=== PATIENT | male | born 1930 | race Caucasian/White ===

== ENCOUNTER 2016-09-01 15:27 | Inpatient (IN) | payer MEDICARE, MEDICAID ==
[2016-09-01] MEDS ORDERED: NS 0.9% 1000 ML* 1,000 ML IV ONE ×2 (16:20→18:34)
--- NOTE | 2016-09-01 17:18 | RAD ---
INDICATION: Near syncope COMPARISON: Chest x-ray May 31, 2015 TECHNIQUE: An AP portable view obtained at 1621 hours is submitted. FINDINGS: Bones/Soft Tissues: There are no acute bony findings. Cardiomediastinal: The heart is normal in size. Lungs: There are no infiltrates. There are mild chronic interstitial changes with persistent left basilar abnormalities. There is mild hyperinflation. Pleura: There are mild chronic pleural changes. Other: None IMPRESSION: MILD CHRONIC PLEURAL AND PARENCHYMAL CHANGES. HYPERINFLATION.
[2016-09-01 17:24] LABS: Hematocrit 29 % (42-52); Hemoglobin 9.1 g/dl (14.0-18.0); Mean Corpuscular HGB Conc 31 g/dl (31-36); Mean Corpuscular Hemoglobin 27 pg (27-31); Mean Corpuscular Volume 86 fL (80-94); Red Blood Count 3.36 10^6/ul (4.0-5.4); Red Cell Distribution Width 15 % (10.5-15); White Blood Count 3.4 10^3/ul (3.5-10.8)
[2016-09-01 17:25] LABS: Add Diff/Slide Review? Slide Review Added; Comments Flag Yes
[2016-09-01 17:41] LABS: Albumin 3.1 g/dL (3.2-5.2); BUN/Creatinine Ratio 19.8 (8-20); Calcium 8.3 mg/dL (8.6-10.3); EGFR African American 23.9 (>60); EGFR Non-African American 18.6 (>60); Globulin 2.7 g/dL (2-4); Magnesium 1.7 mg/dL (1.9-2.7); Total Bilirubin 0.2 mg/dL (0.2-1.0); Total Protein 5.8 g/dL (6.4-8.9); Troponin I 0.01 ng/mL (<0.04)
[2016-09-01 17:54] LABS: Mean Platelet Volume 11 um3 (7.4-10.4)
[2016-09-01 17:57] LABS: Potassium 6.2 mmol/L (3.5-5.0)
[2016-09-01] MEDS ORDERED: Dextrose 50% Syringe 50 ML* 25 GM/50 ML SYRINGE IV PUSH PRN ×2 (18:00→18:34)
[2016-09-01] MEDS ORDERED: Albuterol 2.5 MG/3 ML NEB.SOL* (0.083%) INH ONE (18:00)
[2016-09-01] MEDS ORDERED: Insulin REGULAR(*) 1 UNITS UNIT IV PUSH ONE (18:00)
[2016-09-01] MEDS ORDERED: Calcium Gluconate INJ* 1 GM in NS 0.9% 50 ML* 50 ML IVPB ONE (18:00)
[2016-09-01] MEDS ORDERED: Sodium Polystyrene ORAL.SOL* 15 GM/60 ML BTL PO ONE (18:00)
[2016-09-01 18:04] LABS: TSH (Thyroid Stimulating Horm) 1.41 mcIU/mL (0.34-5.60)
[2016-09-01] MEDS ORDERED: Dextrose 50% Syringe 50 ML* 25 GM/50 ML SYRINGE ONE (18:18)
[2016-09-01] MEDS ORDERED: Ondansetron INJ* 2 MG/ML VIAL IV PRN (18:34)
[2016-09-01] MEDS ORDERED: Magnesium Sulfate 2 GM IV* 2 GM/50 ML BAG IVPB ONE (18:38)
[2016-09-01] MEDS ORDERED: NS 0.9% 1000 ML* 1,000 ML IV SCH (18:45)
[2016-09-01 19:39] LABS: Ferritin 268.9 ng/mL (24-336)
--- NOTE | 2016-09-01 19:41 | PN ---
Hospitalist Progress Note HOSPITALIST ADDENDUM Case reviewed and d/w Daniel Arzate MATERIALS DEVELOPMENT ENGINEER. Mr. Davenport is an 86yo M with PMH of DM, CKD, who presented to ED with c/o dizziness and near syncope. Found to be bradycardic with junctional rhythm on EKG. BP on the lower side, but mentating well. Renal function is worse with hyperkalemia. Suspect his rhythm is secondary to hyperkalemia. Will admit to ICU, treat his K and request Cardiology evaluation as he may need a pacer if his rhythm does not correct with K normalization. Agree with current management.
[2016-09-01 19:43] LABS: Folate 8.35 ng/mL (>3.99)
--- NOTE | 2016-09-01 20:23 | RAD ---
INDICATION: 86-year-old with acute renal failure COMPARISON: None TECHNIQUE: Longitudinal and transverse scans of the kidneys were obtained. FINDINGS: Kidneys: The kidneys are normal in size and echogenicity. No calculi or hydronephrosis is seen. There are left renal cysts with a lower pole 3.8 cm cyst in the midpole 2.6 cm cyst. These have been documented on earlier CT imaging There is prominent sinus fat. The right kidney measures 9.8 x 5.6 was 6.0 cm and the left kidney 9.5 x 4.8 x 5.6 cm. Other: None IMPRESSION: LEFT RENAL CYSTS. NO HYDRONEPHROSIS.
--- NOTE | 2016-09-01 20:47 | ED ---
grzegorz Sage Timothy, scribed for Vega Mendoza MD on 09/01/16 at 1544 . Syncope/Near Syncope - HPI Summary HPI Summary: Jase Davenport is a 86 yo male presenting to [facility] with hypotension. His medical facility called for an ambulance as he stated he felt like he was going to pass out. He states he feels dizzy and is seeing spots. He states he is now having trouble opening and closing his mouth. He states he is feeling much better, and denies any CP, SOB, nausea, or vomiting, but did have diarrhea 4-5 days ago which has resolved. He states he had a RASMUSSEN previously, but this has also resolved. His MHx includes DM II, - History Of Current Complaint Chief Complaint: EDDysrhythmPalp Time Seen by Provider: 09/01/16 15:30 Hx Obtained From: Patient Onset/Duration: Sudden Onset, Lasting Minutes Timing: Constant Context: Witnessed Activity At Onset: At Rest Associated Head Trauma: No Aggravating Factor(s): Nothing Alleviating Factor(s): Spontaneous Resolution Associated Signs And Symptoms: Lightheadedness - Allergies/Home Medications Allergies/Adverse Reactions: Allergies Allergy/AdvReac Type Severity Reaction Status Date / Time Penicillins [PCN] Allergy Unknown Unknown Verified 12/25/15 13:04 Reaction Details Home Medications: Home Medications Aspirin [Aspirin 81 MG TAB] 81 mg PO DAILY 09/01/16 [History Confirmed 09/01/16] Carbamide Peroxide 6.5% OTIC* [DEBROX 6.5% Otic*] 5 flori BOTH EARS DAILY [History Confirmed 09/01/16] Cholecalciferol [D3 High Potency] 2,000 mg PO DAILY 09/01/16 [History Confirmed 09/01/16] Clopidogrel Bisulfate [Plavix] 75 mg PO 09/01/16 [History] Collagenase 250 MG/GM OINT* [Santyl 250 mg/gm Oint*] 1 applic .SEE ORDER SEE INSTRUCTIONS 09/01/16 [History Confirmed 09/01/16] Fluocinonide 0.05% CM (NF) [Lidex 0.05% CREAM (NF)] 0.05 % TOPICAL DAILY [History Confirmed 09/01/16] Fluticasone Propionate (Nasal) [Allergy Nasal [place] 24 Ho] 50 mcg NA BID [History Confirmed 09/01/16] Fluvastatin Sodium [Lescol] 20 mg PO BEDTIME 09/01/16 [History Confirmed ] Gabapentin (Once-Daily) [Gralise] 300 mg PO BID 09/01/16 [History Confirmed 01/11] Lisinopril [Lisinopril 40 MG-] 40 mg PO DAILY 09/01/16 [History Confirmed ] Loratadine 10 mg PO DAILY 09/01/16 [History Confirmed 09/01/16] Metformin ER (NF) 500 mg PO BID 09/01/16 [History Confirmed 09/01/16] Terazosin HCl 2 mg PO BEDTIME 09/01/16 [History Confirmed 09/01/16] Terbinafine HCl (Topical) [Antifungal Foot] 1 % EX DAILY 09/01/16 [History Confirmed 09/01/16] Tramadol HCl [Ultram] 50 mg PO 09/01/16 [History] Zolpidem Tartrate [Ambien] 10 mg PO 09/01/16 [History] PMH/Surg Hx/FS Hx/Imm Hx Endocrine/Hematology History: Reports: Hx Diabetes - Type II - Family History Known Family History: Positive: Cardiac Disease, Hypertension - Social History Alcohol Use: None Substance Use Type: Reports: None Substance Use Comment - Amount & Last Used: unknown Smoking Status (MU): Former Smoker Review of Systems Constitutional: Negative Positive: Other - "seeing spots" ENT: Negative Cardiovascular: Negative Negative: Chest Pain Respiratory: Negative Negative: Shortness Of Breath Positive: Diarrhea - resolved. Negative: Abdominal Pain, Vomiting, Nausea Genitourinary: Negative Musculoskeletal: Negative Skin: Negative Neurological: Other - lightheadedness, trouble opening and closing his mouth Positive: Headache Psychological: Normal All Other Systems Reviewed And Are Negative: Yes Physical Exam - Summary Physical Exam Summary: Vital signs: reviewed General: Patient is comfortable lying in stretcher with no signs of distress HEENT: within normal limits Lungs: CTA B/L CVS: Bradycardia, IRR, S1 & S2 present. No murmurs appreciated. ABDOMEN: Soft, non-tender. No signs of distention. No rebound no guarding, and no masses palpated. Bowel sounds are normal. EXTREMITIES: FROM in all major joints, no edema, no cyanosis or clubbing. NEURO: Alert and oriented x 3. No acute neurological deficits. Speech is normal and follows commands. SKIN: Dry and warm Triage Information Reviewed: Yes Vital Signs On Initial Exam: Initial Vitals BP 82/44 09/01/16 15:39 Vital Signs Reviewed: Yes Diagnostics - Vital Signs Vital Signs Temp Pulse Resp BP Pulse Ox 09/01/16 16:30 38 14 82/42 100 09/01/16 16:14 39 09/01/16 16:09 41 13 90/39 100 09/01/16 16:05 97.7 F 46 18 88/39 100 09/01/16 16:00 42 15 88/39 100 09/01/16 15:53 43 15 81/34 99 09/01/16 15:51 40 12 76/36 100 09/01/16 15:40 41 100 09/01/16 15:39 82/44 - Laboratory Lab Results: Lab Results 09/01/16 Range/Units 17:12 WBC 3.4 L (3.5-10.8) 10^3/ul RBC 3.36 L (4.0-5.4) 10^6/ul Hgb 9.1 L (14.0-18.0) g/dl Hct 29 L (42-52) % MCV 86 (80-94) fL MCH 27 (27-31) pg MCHC 31 (31-36) g/dl RDW 15 (10.5-15) % Plt Count Pending MPV Pending Neut % (Auto) 65.9 (38-83) % Lymph % (Auto) 25.8 (25-47) % [place] % (Auto) 7.2 (1-9) % Eos % (Auto) 0.6 (0-6) % Baso % (Auto) 0.5 (0-2) % Absolute Neuts (auto) 2.2 (1.5-7.7) 10^3/ul Absolute Lymphs (auto) 0.9 L (1.0-4.8) 10^3/ul Absolute Monos (auto) 0.2 (0-0.8) 10^3/ul Absolute Eos (auto) 0 (0-0.6) 10^3/ul Absolute Basos (auto) 0 (0-0.2) 10^3/ul Absolute Nucleated RBC 0 10^3/ul Nucleated RBC % 0 Result Diagrams: 09/01/16 17:12 09/01/16 17:12 Lab Statement: Any lab studies that have been ordered have been reviewed, and results considered in the medical decision making process. - Radiology CXR Xray Interpretation: Positive (See Comments) - IMPRESSION: MILD CHRONIC PLEURAL AND PARENCHYMAL CHANGES. HYPERINFLATION. Radiology Interpretation Completed By: Radiologist - EKG 1530 Cardiac Rate: Bradycardia - 42 BPM EKG Interpretation: Atrial fibrillation @ 42 BPM, no ST elevations Course/Dx Assessment/Plan: Jase Davenport is an 86 yo male presenting to [facility] with hypotension and lightheadedness, stating he was seeing spots and felt like he was going to pass out. Bloodwork shows that Pt has normocytic, normochromic anemia, he has light hyponatremia at 128, potassium of 6.2, and acute on chronic renal failure, requiring observation with his bmp at 928. In the ED course of Tx the BP of pt was 80/40, I decided to give him one dose of IV fluids, right now his BP is 96/50. Since the Pt is hyperkalemic, Pt was given calcium glutamate, insulin, dextrose, kayexalate, and albuterol. At this point i discussed my findings with Dr. Tsai who accepted the Pt for admission. The Pt is still critical, but more stable. - Diagnoses Differential Diagnosis/HQI/PQRI: Positive: Coronary Artery Disease, Dysrhythmia , Other - Bradycardia, Provider Diagnoses: Hyperkalemia, Symptomatic bradycardia, Acute renal failure, Near syncope - Physician Notifications Discussed Care Of Patient With: 1810 - Eulalio (hospitalist) - discussed Pt condition, agrees to admit Pt. 1825 - Dr. Simmons (cardiology) - Discussed Pt condition, agrees to evaluate Pt. Instructed by Provider To: Admit As Inpatient - Critical Care Time Critical Care Time: 30-74 min Discharge - Discharge Plan Condition: Stable Disposition: ADMITTED TO [facility] Disposition Comment: admitted for evaluation and Tx of his diagnoses The documentation as recorded by the grzegorz silverman Timothy accurately reflects the service I personally performed and the decisions made by me, Vega Mendoza MD.
[2016-09-01] MEDS ORDERED: FLUVASTATIN 20 MG PO SCH (21:00)
[2016-09-01] MEDS ORDERED: Heparin VIAL(*) 5000 UNITS/ML VIAL (FIVE THOUSAND) SUBCUT SCH (22:00)
[2016-09-01 22:05] LABS: BUN/Creatinine Ratio 21.8 (8-20); Calcium 7.9 mg/dL (8.6-10.3); EGFR African American 29.8 (>60); EGFR Non-African American 23.2 (>60)
[2016-09-01 22:07] LABS: Troponin I 0.01 ng/mL (<0.04)
[2016-09-01] MEDS: GABAPENTIN 300 MG PO SCH (22:32)
[2016-09-01 23:37] LABS: BUN/Creatinine Ratio 22.3 (8-20); EGFR African American 26.9 (>60); EGFR Non-African American 20.9 (>60); Potassium 5.1 mmol/L (3.5-5.0)
--- NOTE | 2016-09-02 00:01 | HP ---
HISTORY AND PHYSICAL: DATE OF ADMISSION: 09/01/16 PRIMARY CARE PROVIDER: SELVIN Lopez ATTENDING PHYSICIAN WHILE IN THE HOSPITAL: Dr. Lizzette Garcia* (report dictated by Daniel Arzate NP). CHIEF COMPLAINT: Dizziness. HISTORY OF PRESENT ILLNESS: Mr. Davenport is an 86-year-old male patient with a history of hypertension, gout, diabetes, neuropathy, peripheral vascular disease and a history of melanoma. He comes in to the ER today stating that around noontime after eating lunch, he was feeling dizzy. He explained this to , I believe, his aide; he says it is his business planning analyst Violeta and she was concerned and called 911. He gives a history that he has been feeling dizzy off and on over the last week to two weeks. In addition to this, he has had a couple of falls over the last couple of weeks. He says he has not fainted or passed out. He says at times, sometimes he has felt like he has almost passed out, but he sits down and he feels okay. He denied having any chest pain or shortness of breath today, but he did state that he definitely felt dizzy. He felt like he was, in his words, wobbling. He denied having any recent change in medications. No fevers. He says his stools have been loose, but he denies having multiple loose bowel movements. He says recently he was on an antibiotic in the form of doxycycline for a toe infection. The patient says he has not been eating and drinking like he should. He came into the ER today. It was ultimately noted that he was bradycardic. He was in acute renal failure and he was hyperkalemic and the hospitalist service was asked to evaluate for admission. PAST MEDICAL HISTORY: Significant for: 1. Hypertension. 2. Gout. 3. Diabetes. 4. Neuropathy. 5. Peripheral vascular disease. 6. Melanoma. PAST SURGICAL HISTORY: 1. He has had tonsillectomy. 2. Hernia repair, double. HOME MEDICATIONS: Include: 1. Debrox 5 drops both ears daily. 2. Aspirin 81 mg daily. 3. Vitamin D 2000 units daily. 4. Collagenase one application as prescribed. 5. 0.5% topically daily. 6. Lescol 20 mg daily. 7. Fluticasone 50 mcg each nare b.i.d. 8. Clarinex 10 mg daily. 9. Gabapentin 300 mg p.o. b.i.d. 10. Hytrin 2 mg at bedtime. 11. Metformin 500 mg p.o. b.i.d. 12. Terbinafine 1% topically daily. 13. Lisinopril 40 mg daily. 14. Ambien 10 mg daily. 15. Tramadol 50 mg every 6 hours as needed. 16. Plavix 75 mg daily. ALLERGIES TO MEDICATION: Include PENICILLIN. FAMILY HISTORY: His mother is diabetic and has heart disease. Father history reviewed, noncontributory. SOCIAL HISTORY: He is a former smoker. He does not drink alcohol. He does not appoint a surrogate decision maker. REVIEW OF SYSTEMS: There is no documented fever. He denied any significant weight change. There was no double vision. He denies having any ear discharge. There is no rhinorrhea. No sore throat. No thyroid enlargement. Denies having any chest pain. There is no orthopnea. No nocturnal dyspnea. There is no abdominal pain. There is no nausea, no vomiting, no dysuria. No frequency. No seizure. No loss of consciousness. No pruritus and no skin ulcerations. Review of 14 systems completed, all others negative. PHYSICAL EXAMINATION GENERAL: At this time, Mr. Davenport is an 86-year-old male patient. He is sitting in the ER stretcher. He does not appear to be in any acute distress. VITAL SIGNS: Blood pressure 109/49 with a pulse of 44, respirations 14, O2 sat of 100%, temperature of 97.7. HEENT: Head is atraumatic and normocephalic. Eyes: EOMs are intact. Sclerae anicteric and not pale. Throat: Oral mucosa appears to be dry. No oropharyngeal erythema. NECK: Supple. LUNGS: Clear to auscultation. No wheezes, rales, or rhonchi. HEART: Sounds S1, S2. Regular rate and rhythm. No murmurs, rubs, or gallops. ABDOMEN: Soft, flat, and nontender. Bowel sounds present. EXTREMITIES: Pulses 2+ throughout. Able to move all 4 extremities with 5/5 strength. NEUROLOGIC: The patient is awake, he is alert, he is oriented x3. Tongue is midline. Hazardous Waste Material Technician are equal. No gross focal deficits. SKIN: Grossly intact. LABORATORY DATA AND DIAGNOSTIC STUDIES: Labs today revealed WBC of 3.4, RBC of 3.36, hemoglobin of 9.1, platelet count of 80. His sodium was 128, potassium was 6.2, chloride of 108, bicarb 17, BUN 63, creatinine of 3.18, glucose 110, lactic 1.2, calcium 8.3, mag 1.7. Total bili 0.2, AST 20, ALT 13, alk phos 80. Troponin 0.01. BNP 928. TSH 1.41. He had a chest x-ray obtained today, which showed mild chronic pleural and parenchymal changes, hyperinflation. EKG shows what to me appears to be a junctional rhythm, rate of 39, no ST elevations, no T-wave inversions. He has a previous one from 2 years ago, which showed a normal sinus rhythm with rate of 59. Old medical records were reviewed. ASSESSMENT AND PLAN: Mr. Davenport is an 86-year-old male patient coming into the ER today with complaints of dizziness. He presented to the ER today and found to be profoundly bradycardic. He will be admitted under inpatient status for: 1. Bradycardia. At this point with junctional bradycardia, I am going to go ahead and fix that potassium. I am going to give him Kayexalate, calcium gluconate, insulin D50 already ordered in the ER. In addition to this, we will hydrate the patient. Repeat his labs at 2100. I am going to give him 2 of mag. I would like to have pacer pads on the patient at all times. I did touch base with Dr. Simmons who will evaluate the patient today. He is pretty asymptomatic right now. His pressures are right in the 90s, but he is not dizzy. He does not feel like he is going to faint. He does not feel lightheaded. We will continue to follow. If he becomes symptomatic, obviously I would give him a dose of atropine and start pacing him externally and then try for a transvenous pacing and we will continue to follow but I think the etiology could be from the potassium which we have treated. 2. Acute renal failure. Last creatinine was 2. I am going to get a bladder scan, which showed he had 300 cc of urine in the bladder. At this point, we will go ahead and check a renal ultrasound. We will also get a FENa on the patient. We will hydrate him and we will hold any nephrotoxic agents. 3. Hypertension. Holding meds for the time being. We will monitor. 4. Gout. Not an active issue. 5. Diabetes. He will be on lispro sliding scale. 6. Neuropathy. Continue gabapentin. 7. Peripheral vascular disease. Holding the aspirin and the Plavix in the setting that the patient may need a pacemaker. 8. Melanoma. Follow with primary. 9. DVT prophylaxis. I have ordered SCDs. 10. Code status. Full code. 11. Fluids, electrolytes, nutrition. He is NPO for the time being. TIME SPENT: Time spent on the admission was approximately 70 minutes; greater than half the time was spent [id number] with the patient obtaining my history and physical, other half the time spent going over the plan of care with the patient and implementing my plan of care. I did discuss the plan of care with my attending, Dr. Garcia; she is in agreement. DANIEL ARZATE NP CC: Cinda aSnford, SELVIN* [id number]/CPS #: [id number] [id number]
[2016-09-02 00:30] LABS: Troponin I 0.02 ng/mL (<0.04)
[2016-09-02 02:56] LABS: Urine Bilirubin Negative (Negative); Urine Glucose Negative (Negative); Urine Nitrite Negative (Negative)
[2016-09-02 06:06] LABS: Hematocrit 27 % (42-52); Hemoglobin 8.8 g/dl (14.0-18.0); Mean Corpuscular HGB Conc 32 g/dl (31-36); Mean Corpuscular Hemoglobin 28 pg (27-31); Mean Corpuscular Volume 86 fL (80-94); Mean Platelet Volume 11 um3 (7.4-10.4); Red Blood Count 3.16 10^6/ul (4.0-5.4); Red Cell Distribution Width 15 % (10.5-15); White Blood Count 3.8 10^3/ul (3.5-10.8)
[2016-09-02 06:22] LABS: BUN/Creatinine Ratio 23.6 (8-20); Calcium 8.6 mg/dL (8.6-10.3); EGFR African American 32.7 (>60); EGFR Non-African American 25.4 (>60)
[2016-09-02 06:23] LABS: Potassium 5.1 mmol/L (3.5-5.0)
--- NOTE | 2016-09-02 06:23 | PN ---
Progress Note - Progress Note Note: Paged for urinary retention - bladder scan >1L - straight cath x1. Paged again for repeat bladder scan later on that showed >1L, mills ordered.
[2016-09-02] MEDS: Acetaminophen TAB* 325 MG PO PRN ×2 (08:04→23:54)
[2016-09-02] MEDS: Insulin LISPRO* 1 UNITS UNIT SUBCUT SCH ×3 (08:10→16:52)
[2016-09-02] MEDS ORDERED: Sodium Polystyrene ORAL.SOL* 15 GM/60 ML BTL PO ONE (08:26)
--- NOTE | 2016-09-02 10:04 | PN ---
Subjective Date of Service: 09/02/16 Interval History: HOSPITALIST PROGRESS NOTE Patient seen and examined at bedside. He feels better today. Denies dizziness or lightheadedness. Major complaint is left ankle pain similar to his prior episodes of gout. Family History: Unchanged from Admission Social History: Unchanged from Admission Past Medical History: Unchanged from Admission Objective Active Medications: Acetaminophen (Tylenol Tab*) 650 mg PO Q4H PRN PRN Reason: FEVER/PAIN Last Admin: 09/02/16 08:04 Dose: 650 mg Colchicine (Colcrys*) 0.6 mg PO DAILY [facility] Dextrose (D50w Syringe 50 Ml*) 12.5 gm IV PUSH .FOR FS < 60 - SS PRN PRN Reason: FS < 60 Gabapentin (Neurontin Cap(*)) 300 mg PO BID [facility] Sodium Chloride (Ns 0.9% 1000 Ml*) 1,000 mls @ 100 mls/hr IV PER RATE [facility] Insulin Human Lispro (Humalog*) 0 units SUBCUT AC JAYME PRN Reason: Protocol Last Admin: 09/02/16 08:10 Dose: Not Given Ondansetron HCl (Zofran Inj*) 4 mg IV Q6H PRN PRN Reason: NAUSEA Prednisone (Deltasone Tab*) 10 mg PO DAILY JAYME Tamsulosin HCl (Flomax Cap*) 0.4 mg PO BEDTIME [facility] Vital Signs 09/02/16 09/02/16 09/02/16 08:00 08:13 09:00 Temperature 96.4 F 98.3 F Pulse Rate 54 56 Respiratory 15 13 Rate Blood Pressure 131/58 137/58 (mmHg) O2 Sat by Pulse 100 99 Oximetry Oxygen Devices in Use Now: Nasal Cannula Appearance: Pleasant elderly male lying in bed in NAD. Eyes: No Scleral Icterus Ears/Nose/Mouth/Throat: Mucous Membranes Moist Neck: Trachea Midline Respiratory: Symmetrical Chest Expansion and Respiratory Effort, Clear to Auscultation Cardiovascular: RRR - Normal S1 and S2 Abdominal: NL Sounds; No Tenderness; No Distention Extremities: No Edema, - - Pain on palpation of left ankle, with mild warmth, no erythema Neurological: Alert and Oriented x 3, NL Muscle Strength and Tone Lines/Tubes/Other Access: Clean, Dry and Intact Peripheral IV Nutrition: Taking PO's Result Diagrams: 09/02/16 05:50 09/02/16 05:50 Assess/Plan/Problems-Billing Assessment: Mr. Davenport is an 86yo M with PMH of HTN, gout, type 2 DM, diabetic neuropathy, PVD , melanoma, who presented to ED with c/o dizziness and falls, found to be in junctional rhythm, renal failure, and hyperkalemic. - Patient Problems (1) Symptomatic bradycardia Comment: - Patient was in junctional rhythm in the ED and now is in sinus radha. - Likely secondary to hyperkalemia. - Cardiology input appreciated - no plan for pacer placement at this point. - Will transfer to Telemetry. (2) Hyperkalemia Comment: - Due to acute on chronic renal failure. - Continue Kayexalate and monitor. (3) Renal failure Comment: - Suspect post-renal in the setting of BPH. - Patient describes urinary hesitation for many years, but has never seen Urology. - Now with urinary retention - replace Tatum, monitor urine output and renal function. - Continue IVF. (4) BPH (benign prostatic hyperplasia) Comment: - With urinary retention. - Continue Tatum and start Flomax at bedtime. (5) Gout attack Comment: - Suspect mild left ankle arthritis secondary to gouty attack. - Will give low dose prednisone and Colchicine. - Check uric acid and inflammatory markers. (6) HTN (hypertension) Comment: - Was on lisinopril as outpatient, what probably contributed to his ARNULFO and hyperkalemia - d/c for now. - Start amlodipine for BP control. (7) Type 2 diabetes mellitus Comment: - Metformin on hold due to ARNULFO. - Continue Lispro SS. (8) Diabetic neuropathy Comment: - Continue Gabapentin. (9) PVD (peripheral vascular disease) Comment: - No plans for pacer placement at this time - will resume Aspirin. Keep Plavix on hold for now as we continue to monitor. (10) Anemia Comment: - Suspect component of anemia of renal disease. - Check w/u. (11) DVT prophylaxis Comment: - SQ heparin. (12) Full code status Status and Disposition: Inpatient.
[2016-09-02 11:11] LABS: C Reactive Protein 1.56 mg/L (< 5.00)
--- NOTE | 2016-09-02 11:13 | ECHO ---
Patient: JAELYN MCINTYRE [facility] Rec#: [id number] : 1930 Date: 09/02/2016 Age: 86y Height: 185.42 cm / 73.0 in Weight: 73.48 kg / 161.9 lbs Sex: M BSA: 1.97 Room#: [facility] Admit Date#: 09/01/2016 Type: Inpatient Referring: Daniel Arzate NP Reading: Carla Simmons MD Financial Services Technician: Michelle Prakash RDCS CC: Cinda Sanford Transthoracic Echocardiogram Indication: Bradycardia BP: 131/65 HR: 59 Rhythm: Bradycardia Findings History: Hyperkalemia,HTN,DM,melanoma,neuropathy,gout, former smoker. Technical Comments: The study is technically limited due to the patient's smoking history. Completed at 0910. Left Ventricle: The left ventricular chamber size is decreased. Mild to moderate concentric left ventricular hypertrophy is observed. Global left ventricular wall motion and contractility are within normal limits. There is normal left ventricular systolic function. The estimated ejection fraction is 50-55%. There is no consistent Doppler evidence of clinically significant diastolic dysfunction. Left Atrium: The left atrium is mildly dilated. Right Ventricle: Moderator Band present. The right ventricle is mildly dilated. The right ventricular global systolic function is normal. Right Atrium: The right atrium is mildly dilated. Aortic Valve: The aortic valve structure is not well visualized. The aortic valve leaflets are mildly thickened. There is no evidence of aortic regurgitation. There is no evidence of aortic stenosis. Mitral Valve: The mitral valve leaflets are mildly thickened. There is a trace of mitral regurgitation. There is no evidence of mitral stenosis. Tricuspid Valve: The tricuspid valve leaflets are normal. There is moderate tricuspid regurgitation. There is evidence of mild pulmonary hypertension. There is no tricuspid stenosis. Pulmonic Valve: The pulmonic valve structure is not well visualized. Pericardium: The pericardium appears normal. Aorta: There is mild dilatation of the ascending aorta. There is no dilatation of the aortic arch. There is mild dilatation of the aortic root. Pulmonary Artery: The main pulmonary artery is not well visualized. Venous: The inferior vena cava appears normal in size. There is an approximate 50% respiratory change in the inferior vena cava dimension. Conclusions The study of fair quality, body habitus affects image quality. Mild to moderate concentric left ventricular hypertrophy is observed. The left ventricular chamber size is decreased, normal wall motion and contractility. The estimated ejection fraction is 50-55%. The right ventricle is mildly dilated and systolic function is normal. The aortic valve leaflets are mildly thickened with normal function. There is moderate tricuspid regurgitation. There is evidence of mild pulmonary hypertension: 43 mmHg. There is mild dilatation of the ascending aorta: 3.6 cm. No prior echo available to compare. Measurements Name Value Normal Range RVIDd (AP) 2D 2.7 cm (0.9 - 2.6) RVDdMajor (2D) 4.3 cm (2.2 - 4.4) RAd ISD 4CH 6.2 cm (3.4 - 4.9) RA (A4C)W 4.5 cm (2.9 - 4.6) IVSd (2D) 1.4 cm (0.6 - 1) LVPWd (2D) 1.4 cm (0.6 - 1) LVIDd (2D) 3.3 cm (3.6 - 5.4) LVIDs (2D) 1.6 cm - LV FS (2D) 51 % (25 - 45) Aortic Annulus 2 cm (1.4 - 2.6) Ao root diameter (2D) 3.7 cm (2.1 - 3.5) Ascending Ao 3.6 cm (2.1 - 3.4) Aortic arch 3 cm (1.8 - 3.4) Descending Ao 0.6 cm - LA dimension (AP) 2D 3.5 cm (2.3 - 3.8) LAd ISD 4CH 6.5 cm (2.9 - 5.3) LA ISD 4CH W 4.3 cm (2.5 - 4.5) Name Value Normal Range LA ESV SP 4CH (A/L) 63 ml - LA ESV SP 2CH (A/L) 30 ml - LA ESV BP (A/L) 48 ml - LA ESV BP (A/L) index 21.9 ml/m2 - LA ESV SP 4CH (MOD) 60 ml - LA ESV SP 2CH (MOD) 27 ml - Name Value Normal Range MV E-wave Vmax 1 m/sec - MV deceleration time 219 msec - MV A-wave Vmax 0.5 m/sec - MV E:A ratio 2.1 ratio - LV septal e' Vmax 0.09 m/sec - LV lateral e' Vmax 0.11 m/sec - LV E:e' septal ratio 11.11 ratio - LV E:e' lateral ratio 9.09 ratio - Name Value Normal Range AV Vmax 1.4 m/sec - AV VTI 33.5 cm - AV peak gradient 7.85 mmHg - AV mean gradient 4.06 mmHg - LVOT Vmax 1 m/sec - LVOT VTI 24.3 cm - LVOT peak gradient 3.91 mmHg - LVOT mean gradient 1.99 mmHg - Name Value Normal Range TR Vmax 3 m/sec - TR peak gradient 35 mmHg - RAP 8 mmHg - RVSP 43 mmHg - IVC diameter 1.9 cm -
[2016-09-02] MEDS: NS 0.9% 1000 ML* 1,000 ML IV SCH ×2 (13:17→23:59)
[2016-09-02] MEDS: predniSONE TAB* 10 MG PO SCH (13:18)
[2016-09-02] MEDS: Colchicine* 0.6 MG TAB PO SCH (13:18)
[2016-09-02] MEDS: Gabapentin CAP(*) 300 MG PO SCH ×2 (13:18→22:02)
[2016-09-02] MEDS: amLODIPine TAB* 5 MG PO SCH (16:17)
[2016-09-02] MEDS: GABAPENTIN 300 MG PO SCH (17:35)
--- NOTE | 2016-09-02 20:19 | CONS ---
CARDIOLOGY CONSULTATION: DATE OF CONSULT: 09/01/16 REASON FOR CONSULT: Bradycardia. CHIEF COMPLAINT: The patient's chief complaint is dizziness and generally not feeling well. HISTORY OF PRESENT ILLNESS: Mr. Davenport is an 86-year-old gentleman followed in the [facility] and followed by Dr. Mejia in [facility] for peripheral vascular disease. He has longstanding diabetes and hypertension among other diseases. The patient states that for a couple of weeks, he just has not felt well. He has had some intermittent dizziness, but denies any actual syncopal or near syncopal episodes. He denies chest pain, pressure, heaviness, orthopnea, or PND. He does not perceive he has had any recent fevers, chills, or sweats. He did tell me that his left little toe has been treated with antibiotics recently and he follows up with Dr. Reyez in the wound clinic for this. In the emergency room, the patient was found to be bradycardic with junctional rhythm and labs revealed marked hyperkalemia and significant renal insufficiency. PAST MEDICAL HISTORY: The patient has a past medical history of peripheral vascular disease, diabetes, hypertension, melanoma, gout, dyslipidemia. PAST SURGICAL HISTORY: Includes tonsillectomy in childhood, right inguinal hernia repair, circumcision, left inguinal hernia repair. MEDICATIONS: Inpatient medications include: 1. Tylenol p.r.n. 2. Colchicine 0.6 mg a day. 3. Neurontin 300 mg b.i.d. 4. Insulin coverage. 5. Zofran p.r.n. 6. Prednisone 10 mg a day. 7. Normal saline at 100 cc an hour. 8. Flomax 0.4 mg a day. Outpatient medications include: 1. Recent doxycycline. 2. Debrox. 3. Aspirin 81 mg a day. 4. Vitamin D. 5. Collagenase topical. 6. Lescol 20 mg a day. 7. Fluticasone 50 mcg both sides b.i.d. 8. Clarinex 10 mg a day. 9. Neurontin 300 mg b.i.d. 10. Hytrin 2 mg q.h.s. 11. Metformin 500 mg b.i.d. 12. Terbinafine topical. 13. Lisinopril 40 mg a day. 14. Ambien 10 mg a day. 15. Tramadol 50 mg a day. 16. Plavix 75 mg a day. ALLERGIES: Include PENICILLIN. FAMILY HISTORY: Significant that his mother had a history of diabetes, hypertension, and heart disease. 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 No history of alcohol use or abuse identified. REVIEW OF SYSTEMS: See history of present illness. Denies recent fevers, chills, sweats. Denied change in appetite, bowel, or bladder habits. Denied hematuria or dysuria. All other review of systems was negative. Please note the patient's historical abilities are only fair, it is hard for him to stay on task. PHYSICAL EXAM: The patient is 6 feet 1 inch, weighs 171 pounds with a BMI of 23. Vital Signs: On admission to the ER, blood pressure 82/44, 76/36, junctional rhythm in the 40s, currently blood pressure 131/58, sinus rhythm in the 50s; afebrile; respiratory rate 15; oxygen saturation 100%. General Appearance: Tall, lean elderly gentleman, seated, does not appear in acute distress, although he is quite elderly very chatty and loquacious. Psychologically, pleasant and cooperative. Neurologically, awake, alert, and oriented to person and place. I did not evaluate for time. Skin was warm and dry without appreciable cyanosis. HEENT: Pupils are equal and round. Mucous membranes moderately dry. Neck: Without appreciable increase in JVP. Carotid pulses palpable, did not hear bruits, but it is hard to stop him from talking and breathing. Breath sounds had few crackles in the bases, but overall good air movement and no wheezing or rhonchi. Coronary: Distant S1 and S2, regular. No murmurs heard. Abdomen: Nondistended. Active bowel sounds and soft. Lower Extremities: Distal pulses not felt and they are lukewarm. The little toe was examined. No evidence of increased heat or erythema. There is some venous discoloration consistent with chronic venous stasis. DIAGNOSTIC STUDIES/LAB DATA: Labs on admission, sodium 128, potassium 6.2, chloride 108, bicarb 17, BUN 63, creatinine 3.18 (creatinine 07/23/ 2.02 and 02/11/16 1.78). Glucose 110, magnesium 1.7, ALT 13. Troponin #1 0.01, #2 0.01, #3 0.02. TSH 1.41. Current electrolytes today, sodium 134, potassium 5.1 , chloride 111, bicarb 18, BUN 57, creatinine 2.42, calcium 8.6. White count 3.8, hemoglobin 8.8, hematocrit 27 (baseline hematocrit 02/11/16 is 34). INR 0.94. Urinalysis: Specific gravity 1.008, esterase negative, nitrite negative, glucose negative, ketones negative. EKG on admission shows a junctional bradycardia, 39 beats a minute, QRS axis +30 , normal intraventricular conduction times, corrected QT interval [address] segments unremarkable. A 12-lead ECG this morning shows normal sinus rhythm with first-degree AV block 53 beats a minute, QRS axis of 0. Normal intraventricular conduction times and normal STs. Rhythm strips overnight showed initially marked sinus bradycardia prior to resuming normal sinus rhythm at normal rates. Renal ultrasound negative for hydronephrosis, overnight bladder scan consistent with retention and subsequent Tatum placement noted. Chest x-ray showed mild chronic pleural and parenchymal changes and hyperinflation. SUMMARY: Mr. Jase Davenport is an 86-year-old gentleman with dizziness, who presented in a junctional bradycardia in the setting of marked hyperkalemia and acute on top of chronic renal insufficiency. In the emergency room, when I saw him initially September 01, he was hemodynamically stable despite the bradycardia and the sinus rhythm was starting to come back and therefore observation was recommended. Overnight, he has done well with improvement in his hyperkalemia, normal sinus rhythm has been restored. I do not recommend pacemaker implantation at this point as the bradyarrhythmia appears secondary to his renal insufficiency and secondary hyperkalemia and this appears to be correctable. I agree with stopping his lisinopril and measures taken to reverse the hyperkalemia, Kayexalate or D50. Although the patient has atherosclerotic risks with his negative troponins and no evidence of ischemia on his EKG, I do not feel he needs an ischemic workup at this point in time. The patient's peripheral vascular disease is noted and in our system, I do not appreciate that we have lipids checked. I would obtain prior lipids and/or update lipids. Consideration for evaluation for renal artery stenosis as part of his presentation (as opposed to BPH and urinary retention alone) could be considered if this has not been done in the relatively recent past. We will follow Mr. Davenport distantly for his dysrhythmias. Thank you for allowing me to assist in this nice gentleman's care. CC: [facility] [place]; Hospitalist Service* [id number]/[facility] #: [id number] SHWETA
[2016-09-02] MEDS ORDERED: Tamsulosin CAP* 0.4 MG PO SCH (21:00)
[2016-09-02] MEDS: Heparin VIAL(*) 5000 UNITS/ML VIAL (FIVE THOUSAND) SUBCUT SCH (22:04)
[2016-09-03] MEDS: Heparin VIAL(*) 5000 UNITS/ML VIAL (FIVE THOUSAND) SUBCUT SCH (05:34)
[2016-09-03 06:28] LABS: Hematocrit 27 % (42-52); Hemoglobin 8.7 g/dl (14.0-18.0); Mean Corpuscular HGB Conc 33 g/dl (31-36); Mean Corpuscular Hemoglobin 28 pg (27-31); Mean Corpuscular Volume 86 fL (80-94); Mean Platelet Volume 10 um3 (7.4-10.4); Red Blood Count 3.13 10^6/ul (4.0-5.4); Red Cell Distribution Width 15 % (10.5-15); White Blood Count 3.5 10^3/ul (3.5-10.8)
[2016-09-03 06:38] LABS: Comments Flag Yes
[2016-09-03 06:41] LABS: Urine Bacteria Absent (Absent); Urine Bilirubin Negative (Negative); Urine Glucose Negative (Negative); Urine Nitrite Negative (Negative)
[2016-09-03 06:43] LABS: BUN/Creatinine Ratio 21.7 (8-20); Calcium 8.6 mg/dL (8.6-10.3); EGFR African American 52.3 (>60); EGFR Non-African American 40.7 (>60); Potassium 4.6 mmol/L (3.5-5.0)
[2016-09-03 07:27] LABS: Ferritin 269.2 ng/mL (24-336)
[2016-09-03 07:30] LABS: Folate 8.62 ng/mL (>3.99)
[2016-09-03] MEDS: Insulin LISPRO* 1 UNITS UNIT SUBCUT SCH ×2 (07:42→11:31)
[2016-09-03 08:08] VITALS: BP 148/80
[2016-09-03] MEDS ORDERED: Cyanocobalamin INJ * 1,000 MCG/ML VIAL 1 ML VIAL IM ONE (08:29)
[2016-09-03] MEDS: Colchicine* 0.6 MG TAB PO SCH (08:34)
[2016-09-03] MEDS: predniSONE TAB* 10 MG PO SCH (08:34)
[2016-09-03] MEDS: amLODIPine TAB* 5 MG PO SCH (08:35)
[2016-09-03] MEDS: Aspirin EC Low Dose* 81 MG TAB.EC PO SCH ×2 (08:36→11:31)
[2016-09-03] MEDS: Gabapentin CAP(*) 300 MG PO SCH (08:36)
[2016-09-03] MEDS: Acetaminophen TAB* 325 MG PO PRN (08:40)
[2016-09-03 08:54] LABS: HDL Cholesterol 33.8 mg/dL
[2016-09-03] MEDS: NS 0.9% 1000 ML* 1,000 ML IV SCH (09:58)
--- NOTE | 2016-09-04 05:04 | DS ---
DISCHARGE SUMMARY: DATE OF ADMISSION: 09/01/16 DATE OF DISCHARGE AGAINST MEDICAL ADVICE: 09/03/16. PRIMARY CARE PHYSICIAN: SELVIN Lopez. CONSULTING SPA MANAGER/ESTHETICIAN: Dr. Simmons. DISCHARGE DIAGNOSES: 1. Symptomatic bradycardia/junctional rhythm. 2. Hyperkalemia. 3. Acute kidney injury. 4. Urinary retention, likely secondary to benign prostatic hyperplasia. 5. Gout attack. 6. Vitamin B12 deficiency/anemia. 7. Mild thrombocytopenia, likely secondary to B12 deficiency. SECONDARY DIAGNOSES: 1. Hypertension. 2. Gout. 3. Type 2 diabetes. 4. Diabetic neuropathy. 5. Peripheral vascular disease. 6. Melanoma. MEDICATION LIST: 1. Debrox 6.5% 5 drops to both ears daily. 2. Aspirin 81 mg p.o. daily. 3. Vitamin D3 2000 mg p.o. daily. 4. Collagenase ointment to lower extremity wound. 5. Fluocinonide 0.05% topical daily. 6. Fluvastatin 20 mg p.o. at bedtime. 7. Fluticasone nasal spray 50 mcg to nostrils b.i.d. 8. Loratadine 10 mg p.o. daily. 9. Gabapentin 300 mg p.o. b.i.d. 10. Terazosin 2 mg p.o. at bedtime. 11. Terbinafine topical to fungus in the toenails. New medication: Amlodipine 5 mg p.o. daily. HOSPITAL COURSE: Mr. Davenport is an 86-year-old male with past medical history as stated above that presented to the emergency room with complaints of dizziness and sometimes feeling like he was going to pass out. For more details about his presentation, I refer to his history and physical by Daniel Arzate NP. In the emergency room, he was found to be in junctional rhythm with heart rate in the 30's and low normal blood pressure of 82/44. He was admitted for further evaluation. The impression is that the patient likely has BPH with chronic urinary retention and progressive post renal failure. He had a creatinine of 3.1 on admission and a Tatum catheter was placed and his creatinine has slowly trended down to 1.6 on the day of discharge. I believe his renal failure caused metabolic acidosis with hyperkalemia with a potassium of 6.2, what likely precipitated his junctional rhythm, as when his potassium was corrected, his arrhythmia resolved. The patient was initially admitted to the intensive care unit and later on transferred to the telemetry floor. A transthoracic echocardiogram was performed and it showed ejection fraction of 50% to 55% with moderate tricuspid regurgitation, mild pulmonary hypertension, and mild dilatation of the ascending aorta. He was seen in consultation by Cardiology (Dr. Simmons) and she felt that he was hemodynamically stable despite the bradycardia and she did not think a pacemaker implantation was recommended at that point since his bradyarrhythmia appeared to be secondary to renal insufficiency and secondary hyperkalemia. The patient was also on an SAMANTHA inhibitor as outpatient and this was likely contributing to the renal failure and hyperkalemia, so the medication was discontinued and amlodipine was started. While on telemetry, the patient stayed in sinus bradycardia with heart rate in the 50's and he had one episode of a pause lasting 3 seconds, asymptomatic. A renal ultrasound was performed and showed left renal cyst, but no hydronephrosis. On September 03, the patient stated he wanted to be discharged from the hospital. We reviewed his diagnosis and the risk of another episode of hyperkalemia associated with renal failure causing another episode of arrhythmia. The patient verbalized understanding of the explanation, but states that he has family coming to visit tomorrow and he will not stay in the hospital. He understands the risks, including, but not limited to arrhythmia and , but he insists that he needs to be discharged. It is my opinion that the patient is of sound mind, understands his clinical picture, and can make this decision of leaving the hospital against medical advice. The patient was also found to be anemic on admission with mild thrombocytopenia and mild leukopenia. Anemia workup was sent and the patient was found to have vitamin B12 level of 122. He received 1 dose of vitamin B12 intramuscular before going home, but he will need further repletion as outpatient. I did call his primary care provider (Cinda Sanford NP) and left a message asking her to call me back, but she has not called me yet as of 5:30 on 09/03/16. The patient was found to have urinary retention on admission and a Tatum catheter was placed. The patient refused to be discharged with a Tatum catheter. He understands that he will probably develop urinary retention again , but he states that he will see his primary care provider and make arrangements to see a urologist as outpatient. He was also not interested in taking Flomax as outpatient, but he is already on terazosin as an outpatient, so I hope this is going to be enough at this point, but he will certainly need further urological evaluation as outpatient. The patient will be discharged home against medical advice today. He received education about what symptoms should prompt his return to the emergency room. PHYSICAL EXAMINATION: Vital Signs: Temperature 97.6, heart rate 55, respiratory rate 16, oxygen saturation is 99% on room air, blood pressure is 148 /80. General: The patient is a pleasant, elderly male, lying in bed, in no acute distress. CVS: Normal S1, S2. Regular rate and rhythm. Chest: Breath sounds bilaterally with no added sounds. Abdomen: Soft, bowel sounds are present. Extremities: No edema. The patient has a callus to his right foot and he states that he already has an appointment to see Podiatry next week. Neuro: He is alert, awake, and oriented x3. Able to move all 4 extremities. DIET: Renal, consistent carb diet. ACTIVITY: As tolerated. DISPOSITION: To home against medical advice. STATUS DURING THE HOSPITAL: Inpatient. Please keep in mind that this is a summarized version of this patient's hospital stay. If you need more information, please feel free to call me at [phone] or please obtain the full medical records. I did call his PCP Cinda Sanford NP at the [facility] and left a message, but she did not return my call. TIME SPENT: Approximately 45 minutes was spent to complete this discharge. CC: SELVIN Lopez; Dr. Simmons* [id number]/[facility] #: [id number] [facility]
== END 2016-09-03 12:58 | disposition left against medical advice (07) | DRG 683 ==
LOC: ED 15:27 → ICU 18:29 → MEDTELE 09-02 15:08
PROVIDERS: ADMIT Internal Medicine; ATTEND Internal Medicine
PROC: 0T9B70Z Drainage of Bladder with Drainage Device, Via Natural or Artificial Opening (ICD-10-PCS; principal; 2016-09-01)
DX: N17.9 Acute kidney failure, unspecified (principal); E87.2 Acidosis; E11.40 Type 2 diabetes mellitus with diabetic neuropathy, unspecified; E11.22 Type 2 diabetes mellitus with diabetic chronic kidney disease; D69.6 Thrombocytopenia, unspecified; I95.9 Hypotension, unspecified; E11.51 Type 2 diabetes mellitus with diabetic peripheral angiopathy without gangrene; E87.5 Hyperkalemia; I27.2 Other secondary pulmonary hypertension; Z85.820 Personal history of malignant melanoma of skin; M10.9 Gout, unspecified; Z88.0 Allergy status to penicillin; Z82.49 Family history of ischemic heart disease and other diseases of the circulatory system; Z83.3 Family history of diabetes mellitus; Z87.891 Personal history of nicotine dependence; R00.1 Bradycardia, unspecified; I12.9 Hypertensive chronic kidney disease with stage 1 through stage 4 chronic kidney disease, or unspecified chronic kidney disease; N18.9 Chronic kidney disease, unspecified; R55 Syncope and collapse; R33.9 Retention of urine, unspecified; N40.0 Benign prostatic hyperplasia without lower urinary tract symptoms; E78.5 Hyperlipidemia, unspecified; D51.9 Vitamin B12 deficiency anemia, unspecified; Z79.82 Long term (current) use of aspirin; I07.1 Rheumatic tricuspid insufficiency; I77.819 Aortic ectasia, unspecified site; T46.4X5A Adverse effect of angiotensin-converting-enzyme inhibitors, initial encounter; N28.1 Cyst of kidney, acquired; D72.819 Decreased white blood cell count, unspecified; Z53.21 Procedure and treatment not carried out due to patient leaving prior to being seen by health care provider
CPT/HCPCS: 36415; 71010; 76775; 80048; 80053; 80061; 81003; 81015; 82272; 82570; 82607; 82668; 82728; 82746; 83540; 83550; 83605; 83735; 83880; 84300; 84443; 84484; 84550; 85025; 85610; 85652; 86140; 87086; 87641; 93005; 93306; 94640; A9270-GY; J0610; J1644; J2405; J3420; J3475; J7512

== ENCOUNTER 2017-01-25 17:49 | Emergency (ER) | payer MEDICARE, MEDICAID ==
[2017-01-25 19:52] LABS: Hematocrit 37 % (42-52); Hemoglobin 11.9 g/dl (14.0-18.0); Mean Corpuscular HGB Conc 32 g/dl (31-36); Mean Corpuscular Hemoglobin 29 pg (27-31); Mean Corpuscular Volume 89 fL (80-94); Mean Platelet Volume 10 um3 (7.4-10.4); Red Blood Count 4.13 10^6/ul (4.0-5.4); Red Cell Distribution Width 14 % (10.5-15); White Blood Count 7.3 10^3/ul (3.5-10.8)
[2017-01-25 19:55] LABS: Anion Gap 14 mmol/L (2-11); POC CO2 Carbon Dioxide 22 mmol/L (24-29); POC Chloride 106 mmol/L (98-109); POC Potassium 3.6 mmol/L (3.5-4.9); POC Sodium 142 mmol/L (138-146)
[2017-01-25 19:56] LABS: EGFR African American 81.2 (>60); EGFR Non-African American 63.2 (>60); Manual Entry Verification CAR0052; POC Glucose 97 mg/dL (70-105)
[2017-01-25 20:12] LABS: Troponin I 0.01 ng/mL (<0.04)
[2017-01-25 21:21] VITALS: BP 183/87
--- NOTE | 2017-01-25 21:29 | ED ---
I, Bertin,Kamaljit, scribed for Garret Muro MD on 01/25/17 at 1909 . Lower Extremity - HPI Summary HPI Summary: This 86 y/o male presents to ED for acute on chronic LLE foot pain since today. [facility] Pt became concerned with persistent pain and decided to come in to ED today. Left foot is noted in bandage and boot at time of initial evaluation. Positive drainage from left foot, lightheadedness, and chills. PMHx includes DM and melanoma. - History of Current Complaint Chief Complaint: EDExtremityLower Stated Complaint: LEFT LEG PAIN Time Seen by Provider: 01/25/17 18:09 Hx Obtained From: Patient, Medical Records Mechanism Of Injury: Unknown Onset/Duration: Still Present Pain Intensity: 5 Pain Scale Used: 0-10 Numeric Timing: Lasting Hours - Allergies/Home Medications Allergies/Adverse Reactions: Allergies Allergy/AdvReac Type Severity Reaction Status Date / Time Penicillins [PCN] Allergy Unknown Unknown Verified 01/25/17 17:58 Reaction Details PMH/Surg Hx/FS Hx/Imm Hx Endocrine/Hematology History: Reports: Hx Diabetes - Type II Sensory History: Reports: Hx Contacts or Glasses - at all times Opthamlomology History: Reports: Hx Contacts or Glasses - at all times - Cancer History Cancer Type, 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 2005 - hernia surgeryx2 Infectious Disease History: No Infectious Disease History: Denies: Traveled Outside the [place] in Last 30 Days - Family History Known Family History: Positive: Cardiac Disease, Hypertension - Social History Alcohol Use: None Substance Use Type: Reports: None Substance Use Comment - Amount & Last Used: unknown Smoking Status (MU): Former Smoker Review of Systems Negative: Fever Positive: Edema - LLE foot/ankle Positive: Other - Redness at left foot/ankle All Other Systems Reviewed And Are Negative: Yes Physical Exam Triage Information Reviewed: Yes Vital Signs On Initial Exam: Initial Vitals Temp Pulse Resp BP Pulse Ox 97.3 F 66 14 180/74 98 01/25/17 17:53 01/25/17 17:53 01/25/17 17:53 01/25/17 17:53 01/25/17 17:53 Vital Signs Reviewed: Yes Appearance: Positive: Well-Appearing, No Pain Distress Skin: Positive: Other - erythematous LLE foot and ankle Head/Face: Positive: Normal Head/Face Inspection Eyes: Positive: Normal ENT: Positive: Normal ENT inspection Neck: Positive: Supple, Nontender Cardiovascular: Positive: Normal Abdomen Description: Positive: Nontender Musculoskeletal: Positive: Edema Left - Pitting edema Neurological: Positive: Normal Psychiatric: Positive: Affect/Mood Appropriate AVPU Assessment: Alert - [place] Coma Scale Coma Scale Total: 15 Diagnostics - Vital Signs Vital Signs Temp Pulse Resp BP Pulse Ox 01/25/17 18:00 147/69 01/25/17 17:53 97.3 F 66 14 180/74 98 - Laboratory Lab Results: Lab Results 01/25/17 01/25/17 01/25/17 Range/Units 19:35 19:35 19:35 WBC 7.3 (3.5-10.8) 10^3/ul RBC 4.13 (4.0-5.4) 10^6/ul Hgb 11.9 L (14.0-18.0) g/dl Hct 37 L (42-52) % MCV 89 (80-94) fL MCH 29 (27-31) pg MCHC 32 (31-36) g/dl RDW 14 (10.5-15) % Plt Count 149 L (150-450) 10^3/ul MPV 10 (7.4-10.4) um3 Neut % (Auto) 72.4 (38-83) % Lymph % (Auto) 17.8 L (25-47) % [place] % (Auto) 8.1 (1-9) % Eos % (Auto) 1.4 (0-6) % Baso % (Auto) 0.3 (0-2) % Absolute Neuts (auto) 5.3 (1.5-7.7) 10^3/ul Absolute Lymphs (auto) 1.3 (1.0-4.8) 10^3/ul Absolute Monos (auto) 0.6 (0-0.8) 10^3/ul Absolute Eos (auto) 0.1 (0-0.6) 10^3/ul Absolute Basos (auto) 0 (0-0.2) 10^3/ul Absolute Nucleated RBC 0 10^3/ul Nucleated RBC % 0.1 INR (Anticoag Therapy) 0.97 (0.89-1.11) POC Venous Sodium (138-146) mmol/L Sodium Pending POC Venous Potassium (3.5-4.9) mmol/L Potassium Pending POC Venous Chloride (98-109) mmol/L Chloride Pending Carbon Dioxide Pending POC Venous Total CO2 (24-29) mmol/L Anion Gap Pending BUN Pending POC Venous BUN (8-26) mg/dL Creatinine Pending POC Venous Creatinine (0.6-1.3) mg/dL Est GFR ( Amer) Pending Est GFR (Non-Af Amer) Pending BUN/Creatinine Ratio Pending Glucose Pending POC Venous Glucose (70-105) mg/dL Calcium Pending Total Bilirubin Pending AST Pending ALT Pending Alkaline Phosphatase Pending Total Creatine Kinase Pending Troponin I 0.01 (<0.04) ng/mL C-Reactive Protein Pending Total Protein Pending Albumin Pending Globulin Pending Albumin/Globulin Ratio Pending 01/25/17 Range/Units 19:35 WBC (3.5-10.8) 10^3/ul RBC (4.0-5.4) 10^6/ul Hgb (14.0-18.0) g/dl Hct (42-52) % MCV (80-94) fL MCH (27-31) pg MCHC (31-36) g/dl RDW (10.5-15) % Plt Count (150-450) 10^3/ul MPV (7.4-10.4) um3 Neut % (Auto) (38-83) % Lymph % (Auto) (25-47) % [place] % (Auto) (1-9) % Eos % (Auto) (0-6) % Baso % (Auto) (0-2) % Absolute Neuts (auto) (1.5-7.7) 10^3/ul Absolute Lymphs (auto) (1.0-4.8) 10^3/ul Absolute Monos (auto) (0-0.8) 10^3/ul Absolute Eos (auto) (0-0.6) 10^3/ul Absolute Basos (auto) (0-0.2) 10^3/ul Absolute Nucleated RBC 10^3/ul Nucleated RBC % INR (Anticoag Therapy) (0.89-1.11) POC Venous Sodium 142 (138-146) mmol/L Sodium POC Venous Potassium 3.6 (3.5-4.9) mmol/L Potassium POC Venous Chloride 106 (98-109) mmol/L Chloride Carbon Dioxide POC Venous Total CO2 22 L (24-29) mmol/L Anion Gap 14 H BUN POC Venous BUN 27 H (8-26) mg/dL Creatinine POC Venous Creatinine 1.10 (0.6-1.3) mg/dL Est GFR ( Amer) 81.2 Est GFR (Non-Af Amer) 63.2 BUN/Creatinine Ratio 25 H Glucose POC Venous Glucose 97 (70-105) mg/dL Calcium Total Bilirubin AST ALT Alkaline Phosphatase Total Creatine Kinase Troponin I (<0.04) ng/mL C-Reactive Protein Total Protein Albumin Globulin Albumin/Globulin Ratio Result Diagrams: 01/25/17 19:35 01/25/17 19:35 Lab Statement: Any lab studies that have been ordered have been reviewed, and results considered in the medical decision making process. Re-Evaluation - Re-Evaluation First Eval Re-Evaluation Time: 21:07 Comment: MD in room to update pt on blood work. Plan of care involving discharge and outpatient f/u is discussed and pt is agreeable. Lower Extremity Course/Dx - Course Course Of Treatment: Mr. Davenport has been treating a left foot cellulitis with Keflex after a recent admission for the same at the [facility]. He continues with pain for which he is taking neurontin, tramadol and acetaminophen with some relief. He felt a litlle dizzy today when he moved quickly and he came in. His W/U was negative and he had no further episodes of dizziness. - Diagnoses Provider Diagnoses: Cellulitis Discharge - Discharge Plan Condition: Stable Disposition: HOME Patient Education Materials: Cellulitis (ED) Referrals: Cinda Sanford [Primary Care Provider] - 2 Days Additional Instructions: Continue your medication as instructed. The documentation as recorded by the Bertin silverman Soohyun accurately reflects the service I personally performed and the decisions made by me, Garret Muro MD.
[2017-01-25 22:11] LABS: Albumin 3.9 g/dL (3.2-5.2); C Reactive Protein 23.16 mg/L (< 5.00); Calcium 9.6 mg/dL (8.6-10.3); EGFR Non-African American 46.7 (>60); Globulin 3.4 g/dL (2-4); Potassium 4.6 mmol/L (3.5-5.0); Total Bilirubin 0.5 mg/dL (0.2-1.0); Total Protein 7.3 g/dL (6.4-8.9)
== END 2017-01-25 21:27 | disposition home or self-care (01) ==
LOC: ED 17:49
DX: L03.116 Cellulitis of left lower limb (principal); E11.9 Type 2 diabetes mellitus without complications; Z85.820 Personal history of malignant melanoma of skin; Z88.0 Allergy status to penicillin; Z87.891 Personal history of nicotine dependence
CPT/HCPCS: 36415; 80048; 80053; 82550; 83605; 84484; 85025; 85610; 86140; 87040; 99285

== ENCOUNTER → 2017-04-12 08:24 | Emergency (ER) | payer MEDICARE, MEDICAID ==
[2017-04-12 10:02] LABS: Hematocrit 31 % (42-52); Hemoglobin 10.2 g/dl (14.0-18.0); Mean Corpuscular HGB Conc 33 g/dl (31-36); Mean Corpuscular Hemoglobin 29 pg (27-31); Mean Corpuscular Volume 87 fL (80-94); Mean Platelet Volume 9 um3 (7.4-10.4); Red Blood Count 3.53 10^6/ul (4.0-5.4); Red Cell Distribution Width 18 % (10.5-15); White Blood Count 6.1 10^3/ul (3.5-10.8)
[2017-04-12 10:13] LABS: Albumin 3.4 g/dL (3.2-5.2); BUN/Creatinine Ratio 23.2 (8-20); Calcium 8.8 mg/dL (8.6-10.3); EGFR African American 62.5 (>60); EGFR Non-African American 48.6 (>60); Globulin 3.2 g/dL (2-4); Potassium 3.8 mmol/L (3.5-5.0); Total Bilirubin 0.5 mg/dL (0.2-1.0); Total Protein 6.6 g/dL (6.4-8.9)
[2017-04-12 10:14] LABS: Troponin I 0.03 ng/mL (<0.04)
[2017-04-12 10:39] VITALS: BP 107/55
--- NOTE | 2017-04-12 10:59 | ED ---
Laceration/Wound HPI - HPI Summary HPI Summary: Patient presents to the ED s/p fall this morning. He denies hitting his head or LOC. Denies other pain or complaints. He notes to a left skin avulsion just distal to the left elbow which measures approximately 4cm in length. Denies memory loss, confusion, visual changes. Denies SOB, chest discomfort, N/ V/C/D. Denies fevers, sweats or chills. He states he likely fell d/t his ambien. He was extremely tired while trying to go to the restroom early this morning. He has been taking 1 ambien, and now recently started taking 2. PMHx includes neuropathy in bilateral feet. Takes gabapentin at home and ambien before bed. [facility] - History of Current Complaint Stated Complaint: FALL Time Seen by Provider: 04/12/17 09:13 Hx Obtained From: Patient Mechanism of Injury: Sharp/Blunt Trauma Onset/Duration: Sudden Onset Aggravating: Movement Alleviating: Compression Timing: Constant Onset Severity: Mild Current Severity: Mild Pain Intensity: 1 Pain Scale Used: 0-10 Numeric Associated Signs & Symptoms: Negative - Allergy/Home Medications Allergies/Adverse Reactions: Allergies Allergy/AdvReac Type Severity Reaction Status Date / Time Penicillins [PCN] Allergy Unknown Unknown Verified 01/25/17 17:58 Reaction Details PMH/Surg Hx/FS Hx/Imm Hx Previously Healthy: Yes Endocrine/Hematology History: Reports: Hx Diabetes - Type II Sensory History: Reports: Hx Contacts or Glasses - at all times Opthamlomology History: Reports: Hx Contacts or Glasses - at all times - Cancer History Cancer Type, 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 2006 - hernia surgeryx2 - Immunization History Hx Pertussis Vaccination: No Immunizations Up to Date: Unable to Obtain/Confirm Infectious Disease History: Yes Infectious Disease History: Denies: Traveled Outside the [place] in Last 30 Days - Family History Known Family History: Positive: Cardiac Disease, Hypertension - Social History Occupation: Retired Lives: Assisted Living Alcohol Use: None Hx Substance Use: No Substance Use Type: Reports: None Substance Use Comment - Amount & Last Used: unknown Hx Tobacco Use: Yes Smoking Status (MU): Former Smoker Review of Systems Constitutional: Negative Cardiovascular: Negative Respiratory: Negative Genitourinary: Negative Positive: no symptoms reported, see HPI Positive: Other Neurological: Negative Psychological: Normal All Other Systems Reviewed And Are Negative: Yes Physical Exam Triage Information Reviewed: Yes Vital Signs On Initial Exam: Initial Vitals Temp Pulse Resp BP Pulse Ox 98.0 F 75 19 131/68 91 04/12/17 08:26 04/12/17 08:26 04/12/17 08:26 04/12/17 08:26 04/12/17 08:26 Vital Signs Reviewed: Yes Appearance: Positive: Well-Appearing, Well-Nourished Skin: Positive: Other - avulsion to the left arm Head/Face: Positive: Normal Head/Face Inspection Eyes: Positive: EOMI, GRAY, Conjunctiva Clear Neck: Positive: Supple, Nontender, No Lymphadenopathy Respiratory/Lung Sounds: Positive: Clear to Auscultation, Breath Sounds Present Cardiovascular: Positive: Normal, RRR Musculoskeletal: Positive: Normal, Strength/ROM Intact Neurological: Positive: Speech Normal Psychiatric: Positive: Normal - [place] Coma Scale Coma Scale Total: 15 Diagnostics - Vital Signs Vital Signs Temp Pulse Resp BP Pulse Ox 04/12/17 10:39 99 F 04/12/17 10:30 75 18 107/55 93 04/12/17 10:15 76 19 114/54 91 04/12/17 10:00 88 16 124/66 94 04/12/17 09:45 85 20 130/44 93 04/12/17 09:30 88 11 150/71 93 04/12/17 09:15 90 24 139/71 91 04/12/17 09:00 76 18 137/57 93 04/12/17 08:45 75 18 132/54 91 04/12/17 08:31 75 15 92 04/12/17 08:30 130/61 04/12/17 08:29 131/68 04/12/17 08:26 98.0 F 75 19 131/68 91 - Laboratory Lab Results: Lab Results 04/12/17 04/12/17 04/12/17 Range/Units 09:40 09:40 09:40 WBC (3.5-10.8) 10^3/ul RBC (4.0-5.4) 10^6/ul Hgb (14.0-18.0) g/dl Hct (42-52) % MCV (80-94) fL MCH (27-31) pg MCHC (31-36) g/dl RDW (10.5-15) % Plt Count (150-450) 10^3/ul MPV (7.4-10.4) um3 Neut % (Auto) (38-83) % Lymph % (Auto) (25-47) % [place] % (Auto) (1-9) % Eos % (Auto) (0-6) % Baso % (Auto) (0-2) % Absolute Neuts (auto) (1.5-7.7) 10^3/ul Absolute Lymphs (auto) (1.0-4.8) 10^3/ul Absolute Monos (auto) (0-0.8) 10^3/ul Absolute Eos (auto) (0-0.6) 10^3/ul Absolute Basos (auto) (0-0.2) 10^3/ul Absolute Nucleated RBC 10^3/ul Nucleated RBC % APTT 28.8 (26.0-36.3) seconds Sodium 133 (133-145) mmol/L Potassium 3.8 (3.5-5.0) mmol/L Chloride 102 (101-111) mmol/L Carbon Dioxide 24 (22-32) mmol/L Anion Gap 7 (2-11) mmol/L BUN 32 H (6-24) mg/dL Creatinine 1.38 H (0.67-1.17) mg/dL Est GFR ( Amer) 62.5 (>60) Est GFR (Non-Af Amer) 48.6 (>60) BUN/Creatinine Ratio 23.2 H (8-20) Glucose 160 H (70-100) mg/dL Lactic Acid (0.5-2.0) mmol/L Calcium 8.8 (8.6-10.3) mg/dL Magnesium 2.0 (1.9-2.7) mg/dL Total Bilirubin 0.50 (0.2-1.0) mg/dL AST 16 (13-39) U/L ALT 13 (7-52) U/L Alkaline Phosphatase 86 (34-104) U/L Total Creatine Kinase 101 (10-223) U/L Troponin I 0.03 (<0.04) ng/mL B-Natriuretic Peptide 185 H ( - 100) pg/mL Total Protein 6.6 (6.4-8.9) g/dL Albumin 3.4 (3.2-5.2) g/dL Globulin 3.2 (2-4) g/dL Albumin/Globulin Ratio 1.1 (1-3) TSH Pending 04/12/17 04/12/17 Range/Units 09:40 09:40 WBC 6.1 (3.5-10.8) 10^3/ul RBC 3.53 L (4.0-5.4) 10^6/ul Hgb 10.2 L (14.0-18.0) g/dl Hct 31 L (42-52) % MCV 87 (80-94) fL MCH 29 (27-31) pg MCHC 33 (31-36) g/dl RDW 18 H (10.5-15) % Plt Count 151 (150-450) 10^3/ul MPV 9 (7.4-10.4) um3 Neut % (Auto) 80.9 (38-83) % Lymph % (Auto) 10.6 L (25-47) % [place] % (Auto) 8.3 (1-9) % Eos % (Auto) 0.1 (0-6) % Baso % (Auto) 0.1 (0-2) % Absolute Neuts (auto) 4.9 (1.5-7.7) 10^3/ul Absolute Lymphs (auto) 0.6 L (1.0-4.8) 10^3/ul Absolute Monos (auto) 0.5 (0-0.8) 10^3/ul Absolute Eos (auto) 0 (0-0.6) 10^3/ul Absolute Basos (auto) 0 (0-0.2) 10^3/ul Absolute Nucleated RBC 0 10^3/ul Nucleated RBC % 0 APTT (26.0-36.3) seconds Sodium (133-145) mmol/L Potassium (3.5-5.0) mmol/L Chloride (101-111) mmol/L Carbon Dioxide (22-32) mmol/L Anion Gap (2-11) mmol/L BUN (6-24) mg/dL Creatinine (0.67-1.17) mg/dL Est GFR ( Amer) (>60) Est GFR (Non-Af Amer) (>60) BUN/Creatinine Ratio (8-20) Glucose (70-100) mg/dL Lactic Acid 0.8 (0.5-2.0) mmol/L Calcium (8.6-10.3) mg/dL Magnesium (1.9-2.7) mg/dL Total Bilirubin (0.2-1.0) mg/dL AST (13-39) U/L ALT (7-52) U/L Alkaline Phosphatase (34-104) U/L Total Creatine Kinase (10-223) U/L Troponin I (<0.04) ng/mL B-Natriuretic Peptide ( - 100) pg/mL Total Protein (6.4-8.9) g/dL Albumin (3.2-5.2) g/dL Globulin (2-4) g/dL Albumin/Globulin Ratio (1-3) TSH Result Diagrams: 04/12/17 09:40 04/12/17 09:40 Lab Statement: Any lab studies that have been ordered have been reviewed, and results considered in the medical decision making process. Laceration Repair Course/Dx - Course Course Of Treatment: Patient evaluated for fall. Denies hitting his head and no acute findings found on exam. He has a skin avulsion to the left elbow. Anitbiotic ointment, telfa and gauze applied. Labs WNL except for low H/H, however this is checked and better than his baseline. He is OK with plan and discharge and to go home. Discussed with patient DC ambien d/t side effects in elderly. BEERS CRITERIA identified. Recommended trazodone or benadryl to help with sleep. - Differential Dx Differental Diagnoses: Avulsion - Clinical Impression Provider Diagnoses: Avulsion of skin of left upper extremity Discharge - Discharge Plan Condition: Stable Disposition: HOME Patient Education Materials: Fall Prevention for Older Adults (ED) Referrals: Cinda Sanford [Primary Care Provider] - Additional Instructions: Please speak with your provider regarding your ambien. As discussed, this is more dangerous to older adults when take nightly with a higher risk of falls Consider switching to benadryl or Trazodone. Continue with bandage x 24 hours. You will want this changed daily until the skin has healed somewhat. Antibiotic ointment and dressing applied.
[2017-04-12 11:02] LABS: TSH (Thyroid Stimulating Horm) 0.73 mcIU/mL (0.34-5.60)
== END | disposition home or self-care (01) ==
LOC: ED 08:24
DX: S41.102A Unspecified open wound of left upper arm, initial encounter (principal); E11.9 Type 2 diabetes mellitus without complications; W19.XXXA Unspecified fall, initial encounter; Y93.9 Activity, unspecified; Y92.9 Unspecified place or not applicable; Z87.891 Personal history of nicotine dependence
CPT/HCPCS: 36415; 80053; 82550; 83605; 83735; 83880; 84443; 84484; 85025; 85730; 93005; 99282

== ENCOUNTER 2017-10-30 04:56 | Emergency (ER) | payer MEDICARE, MEDICAID ==
[2017-10-30] MEDS ORDERED: Tetan/Diph/Pertus SYR(Tdap)* 0.5 ML SYR(BOOSTRIX) use SYR IM ONE (05:21)
--- NOTE | 2017-10-30 06:52 | ED ---
Girish Sage Nikita, scribed for Rudy Ruiz MD on 10/30/17 at 0531 . Head Injury - HPI Summary HPI Summary: This patient is an 87 year old M BIBA to ED with a chief complaint of abrasion to R forehead and skin tear to R elbow s/p falling out of bed this morning. The patient arrived with his R elbow dressed. The patient rates the pain 8/10 in severity. Symptoms aggravated by nothing. Symptoms alleviated by nothing. Patient reports RASMUSSEN. Patient denies LOC. The patient lives alone. - History Of Current Complaint Chief Complaint: EDFacialInjury Stated Complaint: FALL Time Seen by Provider: 10/30/17 05:10 Hx Obtained From: Patient Mechanism Of Injury: Fall From Height Of: - bed Onset/Duration: Started Minutes Ago, Still Present Onset of Pain: Immediate Severity Currently: Moderate Severity Initially: Moderate Pain Intensity: 8 Pain Scale Used: 0-10 Numeric Location of Head Injury: Other: - R forehead Location: Discrete At: - R forehead Aggravating Factor(s): Other: - nothing Alleviating Factor(s): Other: - nothing Associated Signs And Symptoms: Other: - skin tear to R elbow. Patient reports RASMUSSEN. Patient denies LOC. 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 2005 - hernia surgeryx2 - Immunization History Date of Tetanus Vaccine: unk Date of Influenza Vaccine: fall 2016 Infectious Disease History: No Infectious Disease History: Denies: Traveled Outside the [place] in Last 30 Days - Family History Known Family History: Positive: Cardiac Disease, Hypertension - Social History Alcohol Use: None Hx Substance Use: No Substance Use Type: Reports: None Substance Use Comment - Amount & Last Used: unknown Hx Tobacco Use: Yes Smoking Status (MU): Former Smoker Review of Systems Positive: Other - abrasion to R forehead, skin tear to R elbow Neurological: Other - denies LOC Positive: Headache All Other Systems Reviewed And Are Negative: Yes Physical Exam - Summary Physical Exam Summary: VITAL SIGNS: Reviewed. GENERAL: ~Patient is a well-developed and nourished MALE who is lying comfortable in the stretcher. Patient is not in any acute respiratory distress. HEAD AND FACE: No ecchymosis or skull depressions. No sinus tenderness. Abrasion over R forehead with swelling. EYES: PERRLA, EOMI x 2, No injected conjunctiva, no nystagmus. EARS: Hearing grossly intact. Ear canals and tympanic membranes are within normal limits. MOUTH: Oropharynx within normal limits. NECK: Supple, trachea is midline, no adenopathy, no JVD, no carotid bruit, no c- spine tenderness, neck with full ROM. CHEST: Symmetric, no tenderness at palpation LUNGS: Clear to auscultation bilaterally. No wheezing or crackles. CVS: Regular rate and rhythm, S1 and S2 present, no murmurs or gallops appreciated. ABDOMEN: Soft, non-tender. No signs of distention. No rebound, no guarding, and no masses palpated. Bowel sounds are normal. EXTREMITIES: FROM in all major joints, no cyanosis or clubbing. Bilateral lower extremity edema with chronic skin changes. NEURO: Alert and oriented x 3. No acute neurological deficits. Speech is normal and follows commands. SKIN: Dry and warm. Skin tear over the r elbow with some skin loss. Triage Information Reviewed: Yes Vital Signs On Initial Exam: Initial Vitals Temp Pulse Resp BP Pulse Ox 98.4 F 58 18 174/78 96 10/30/17 05:01 10/30/17 05:01 10/30/17 05:01 10/30/17 05:01 10/30/17 05:01 Vital Signs Reviewed: Yes Procedures - Procedure Summary Procedure Summary: Done at 0532: I cleaned his wounds and applied several steri strips for the skin tear. Diagnostics - Vital Signs Vital Signs Temp Pulse Resp BP Pulse Ox 10/30/17 05:01 98.4 F 58 18 174/78 96 - Laboratory Lab Statement: Any lab studies that have been ordered have been reviewed, and results considered in the medical decision making process. Head Injury Course/Dx Assessment/Plan: This patient is an 87 year old M BIBA to ED with a chief complaint of abrasion to R forehead and skin tear to R elbow s/p falling out of bed this morning. The patient's skin tear was cleaned and several steri strips were applied. This patient will be signed out to Dr. Muro, pending disposition , awaiting Brain CT, C-spine CT, and re-evaluation. - Diagnoses Provider Diagnoses: Fall Discharge - Sign-Out/Discharge Documenting (check all that apply): Sign-Out Patient - This patient will be signed out to Dr. Muro, pending disposition, awaiting Brain CT, C-spine CT, and re-evaluation. Signing out patient TO: Garret Muro - Discharge Plan Referrals: Cinda Sanford [Primary Care Provider] - The documentation as recorded by the Girish silverman Nikita accurately reflects the service I personally performed and the decisions made by , Rudy Ruiz MD.
--- NOTE | 2017-10-30 08:48 | RAD ---
INDICATION: Head injury. COMPARISON: Comparison is made with a prior CT of the brain from April 03, 2013. TECHNIQUE: Contiguous axial sections of the brain were obtained from the skull base to the vertex without contrast. FINDINGS: The ventricles, cisterns and sulci are enlarged consistent with diffuse atrophy. There are small areas of decreased density in the subcortical and periventricular white matter suggestive of mild chronic small vessel ischemic changes. No mass effect is present. There is no evidence for hemorrhage. There is focal soft tissue swelling in the scalp anterior to the right frontal bone. No fracture is seen. The paranasal sinuses and mastoid air cells appear clear. IMPRESSION: NO EVIDENCE FOR ACUTE INTRACRANIAL ABNORMALITY.
--- NOTE | 2017-10-30 09:13 | RAD ---
INDICATION: Trauma. COMPARISON: Comparison is made with a prior CT of the cervical spine from April 03, 2013. TECHNIQUE: Contiguous axial sections were obtained from the skull base through the T1 vertebra. Images were reconstructed in the sagittal and coronal planes. FINDINGS: There is straightening of the cervical spine with fusion of the C4-C7 vertebral bodies. No fracture is seen. There is subchondral cystic or erosive change present within the odontoid process which has progressed from the prior exam. At the C3-C4 level there is mild posterior uncinate process spurring. No significant spinal canal narrowing is present. There is mild neural foraminal narrowing on the right side. At the C4-C5 level. There is mild posterior uncinate process spurring. No significant spinal canal narrowing is present. There is mild to moderate bilateral neural foraminal narrowing. C5-C6 level. There is mild posterior uncinate process spurring. No significant spinal canal narrowing is present. There is moderate bilateral neural foraminal narrowing. At the C6-C7 level there is mild posterior uncinate process spurring. No significant spinal canal narrowing is present. There is mild bilateral neural foraminal narrowing. At the C7-T1 level there is mild posterior uncinate process spurring. No significant spinal canal narrowing is present. There is mild bilateral neural foraminal narrowing. The lung apices appear clear. IMPRESSION: 1. NO EVIDENCE FOR FRACTURE. 2. [id number] CERVICAL SPONDYLOSIS. IN ADDITION THERE IS PARTIAL FUSION OF THE C4 THROUGH C7 VERTEBRAL BODIES.
[2017-10-30 09:36] VITALS: BP 168/80
--- NOTE | 2017-10-30 10:19 | ED ---
Miguel Sage Elizabeth, scribed for Garret Muro MD on 10/30/17 at 0908 . Progress - Progress Note Progress Note: Patient was signed out to Dr. Muro pending results of Brain CT and Cervical Spine CT. Brain CT, per radiologist, reveals no evidence for acute intracranial abnormality. Cervical Spine CT, per radiologist, reveals no evidence for fracture, mild-to- moderate cervical spondylosis and partial fusion of c4 through c7 vertebral bodies, Dr. Muro has reviewed these radiology reports. Patient is diagnosed with head injury and skin tears. Patient will be discharged to a [facility] and is instructed to follow up with his primary care physician in 2-3 days. Patient is agreeable with this plan. - Results/Orders Results/Orders: Brain CT Interpreted by radiologist. IMPRESSION: NO EVIDENCE FOR ACUTE INTRACRANIAL ABNORMALITY. Dr. Muro has reviewed this report. Cervical Spine CT Interpreted by radiologist IMPRESSION: 1. NO EVIDENCE FOR FRACTURE. 2. [id number] CERVICAL SPONDYLOSIS. IN ADDITION THERE IS PARTIAL FUSION OF THE C4 THROUGH C7 VERTEBRAL BODIES. Dr[address] Muro has reviewed this report. - EKG/XRAY/CT CT: Brain CT, Cervical Spine CT Re-Evaluation - Re-Evaluation first re-eval Re-Evaluation Time: 09:29 Change: Unchanged Comment: Discussed CT results and course of treatment with pt Course/Dx - Course Course Of Treatment: I spoke with Mr. Davenport after his CT scans came back WNL. He was having some breakfast and very pleasant without any complaints. - Diagnoses Provider Diagnoses: Head injury, Skin tear Discharge - Sign-Out/Discharge Documenting (check all that apply): Discharge/Admit/Transfer - Discharge Plan Condition: Stable Disposition: [facility] FACILITY Patient Education Materials: Head Injury (ED), Skin Tear (ED) Referrals: Cinda Sanford [Primary Care Provider] - 2 Days () Additional Instructions: Follow up with your primary care physician in 2-3 days. Return to the emergency department with any new or worsening symptoms. - Billing Disposition and Condition Condition: STABLE Disposition: SNF The documentation as recorded by the Miguel silverman Elizabeth accurately reflects the service I personally performed and the decisions made by , Garret Muro MD.
== END 2017-10-30 10:07 ==
LOC: ED 04:56
DX: S00.81XA Abrasion of other part of head, initial encounter (principal); S51.011A Laceration without foreign body of right elbow, initial encounter; Z87.891 Personal history of nicotine dependence; I10 Essential (primary) hypertension; Z85.820 Personal history of malignant melanoma of skin; W06.XXXA Fall from bed, initial encounter; Y92.9 Unspecified place or not applicable; Z60.2 Problems related to living alone; E11.9 Type 2 diabetes mellitus without complications
CPT/HCPCS: 70450; 72125; 90471; 90715; 99283